=== PATIENT | female | born 1970 | race African-American/Black ===

== ENCOUNTER 2022-12-11 00:41 | Inpatient (IN) | payer OTHER ==
[~2022-12-11] VITALS: Ht 172.7 cm; Wt 60.3 kg
[2022-12-11 00:45] VITALS: BP 145/90
--- NOTE | 2022-12-11 00:58 | NUR ---
PT TO BED #1
--- NOTE | 2022-12-11 01:00 | NUR ---
TO BED 1 FOLLOWING TRIAGE
--- NOTE | 2022-12-11 01:10 | NUR ---
c/o 10/10 abd pain radiating to back x 2 weeks. per pt, nausea vomiting, diarrhea, SOB. pmhx: CHF, afib, HTN.
--- NOTE | 2022-12-11 01:18 | NUR ---
Dr. French by bedside evaluating patient
[2022-12-11] MEDS ORDERED: NACL 0.9% 1,000 ML IV ONE (01:30)
--- NOTE | 2022-12-11 01:35 | NUR ---
Pt taken to CT
--- NOTE | 2022-12-11 01:36 | NUR ---
Urine collected sent to lab
[2022-12-11] MEDS ORDERED: MORPHINE SULFATE 4 MG/ML SYR IVP ONE (02:10)
[2022-12-11] MEDS ORDERED: ONDANSETRON 4 MG/2 ML VIAL IVP ONE (02:10)
[2022-12-11 02:13] LABS: BASOPHILS # (AUTO) 0.1 K/uL (0.00-0.22); BASOPHILS % (AUTO) 1.5 % (0.0-2.0); EOSINOPHILS # (AUTO) 0.1 K/uL (0-0.4); EOSINOPHILS % (AUTO) 1.6 % (0.0-4.0); HEMATOCRIT 38.9 % (36-48); HEMOGLOBIN 13.6 g/dL (12.0-16.0); LYMPHOCYTES # (AUTO) 1.6 K/uL (2.5-16.5); LYMPHOCYTES % (AUTO) 29.4 % (20.5-51.1); MEAN CORPUSCULAR HEMOGLOBIN 35 pg (27-31); MEAN CORPUSCULAR HGB CONC 35 g/dL (33-37); MEAN CORPUSCULAR VOLUME 99.3 fL (80-94); MONOCYTES # (AUTO) 0.4 K/uL (0.8-1.0); MONOCYTES % (AUTO) 6.5 % (1.7-9.3); NEUTROPHILS # (AUTO) 3.4 K/uL (1.8-7.7); PLATELET COUNT (AUTO) 184 K/uL (140-450); RED BLOOD CELL COUNT(AUTO) 3.92 MIL/uL (4.20-5.40); RED CELL DISTRIBUTION WIDTH 13.6 % (11.6-13.7); WHITE BLOOD COUNT (AUTO) 5.5 K/uL (4.8-10.8)
[2022-12-11 02:14] LABS: APPEARANCE,URINE CLEAR (CLEAR); BILIRUBIN,URINE NEGATIVE (NEGATIVE); BLOOD, URINE TRACE-I (NEGATIVE); COLOR,URINE YELLOW (YELLOW); LEUKOCYTE ESTERASE ,URINE NEGATIVE (NEGATIVE); NITRITE, URINE NEGATIVE (NEGATIVE); PH,URINE 8.5 (5.0-9.0); UGLUCOSE 2+ (NEGATIVE)
[2022-12-11 02:31] LABS: RBC,URINE 0-5 /HPF (0-5); WBC,URINE NONE SEEN /HPF (0-5)
[2022-12-11] MEDS ORDERED: PIPERACILLIN/TAZOBACTAM 3.375 GM in DEXTROSE 5% 50 ML IV ONE (02:40)
[2022-12-11 02:45] LABS: ALBUMIN 3.3 g/dL (3.4-5.0); ANION GAP 14.9 (8-16); CARBON DIOXIDE 27.3 mmol/L (21-32); CREATININE 0.6 mg/dL (0.6-1.3); POTASSIUM 3.2 mmol/L (3.5-5.1); TOTAL BILIRUBIN 0.5 mg/dL (0.0-1.0)
--- NOTE | 2022-12-11 02:48 | NUR ---
COVID SWAB COLLECTED AND SENT TO LAB
[2022-12-11] MEDS ORDERED: PIPERACILLIN/TAZOBACTAM 3.375 GM VIAL IV ONE (03:01)
[2022-12-11] MEDS ORDERED: DEXT 5% /NACL 0.9% 1,000 ML IV SCH ×2 (04:00→09:45)
[2022-12-11] MEDS ORDERED: FURO-572 PO (04:12)
[2022-12-11] MEDS ORDERED: HYDR-4004 PO (04:12)
[2022-12-11] MEDS ORDERED: SPIR50TA PO (04:12)
[2022-12-11] MEDS ORDERED: IBUP-44 PO (04:12)
[2022-12-11] MEDS ORDERED: AMLO10TA PO (04:12)
[2022-12-11] MEDS ORDERED: ONDA-188 PO (04:12)
[2022-12-11] MEDS ORDERED: PHE25S PO (04:12)
[2022-12-11] MEDS ORDERED: POTA10TA70 PO (04:12)
[2022-12-11] MEDS ORDERED: CARI350T PO (04:12)
[2022-12-11] MEDS ORDERED: CLON-1170 PO (04:12)
--- NOTE | 2022-12-11 04:13 | NUR ---
Pt c/o severe abdominal pain, contacted Dr. Allen and relayed info that pt received Morphine 4 mg at 0235. Orders received for Morphine 2mg q 4 hrs PRN. Noted and carried out.
[2022-12-11] MEDS ORDERED: FAMO-90 PO (04:17)
[2022-12-11] MEDS ORDERED: IMO2 PO (04:17)
[2022-12-11] MEDS ORDERED: ALBU0.0912 INH (04:17)
[2022-12-11] MEDS ORDERED: [UNRECOGNIZED DRUG - CODE] PO (04:17)
[2022-12-11] MEDS ORDERED: BUDE180P IH (04:17)
--- NOTE | 2022-12-11 04:37 | NUR ---
MED RECONCILE COMPLETED
[2022-12-11] MEDS: MORPHINE SULFATE 2 MG/ML SYR IVP PRN ×2 (04:54→09:19)
--- NOTE | 2022-12-11 05:15 | NUR ---
Report given to Luke BOLANOS for transfer of care.
[2022-12-11 05:22] VITALS: BP 169/86
--- NOTE | 2022-12-11 05:30 | NUR ---
RECEIVED REPORT FROM ER NURSE OMA FOR CONTINUITY OF CARE. PATIENT IS A&O X4. PATIENT IS ON ROOM AIR, BREATHING IS NORMAL WITH SYMMETRICAL RISE AND FALL OF CHEST. IV IS A LEFT WRIST 22G, RUNNING D5 NS 125. PATIENT IS AWAKE, HIGH-FOWLERS POSITION. BED IS IN LOWEST POSITION WITH WHEELS LOCKED AND CALL LIGHT IN PLACE. WILL CONTINUE TO OBSERVE PATIENT.
--- NOTE | 2022-12-11 07:30 | NUR ---
RECEIVED REPORT FROM CARPENTER CRADLE AND DOLLY FOR CONTINUITY OF CARE. INITIAL ASSESSMENT DONE. IVF INFUSING WELL. PT STATED I WILL GO AMA AFTER I SEE THE DOCTOR. CALL LIGHT KEPT WITHIN REACH. WILL CONTINUE TO MONITOR.
--- NOTE | 2022-12-11 07:36 | NUR ---
ENDORSED TO DAY SHIFT NURSE RUDY FOR CONTINUITY OF CARE. PATIENT IS STABLE.
[2022-12-11 09:19] VITALS: BP 84/180
[2022-12-11] MEDS: hydrALAZINE 20 MG/ML VIAL IVP PRN ×3 (09:19→11:09)
[2022-12-11] MEDS ORDERED: ZOLPIDEM 5 MG TAB PO PRN (09:45)
[2022-12-11] MEDS ORDERED: amLODIPine 5 MG TAB PO SCH (09:45)
[2022-12-11] MEDS ORDERED: ONDANSETRON 4 MG/2 ML VIAL IM/IVP PRN (09:45)
[2022-12-11] MEDS ORDERED: ACETAMINOPHEN 325 MG TAB PO PRN (09:45)
[2022-12-11] MEDS ORDERED: HYDROcodone/APAP 7.5/325 MG 1 TAB PO PRN (09:45)
[2022-12-11] MEDS ORDERED: carisoprodoL 350 MG TAB PO SCH (09:45)
[2022-12-11] MEDS ORDERED: POTASSIUM CHLORIDE 10 MEQ TABER PO PRN (09:45)
[2022-12-11] MEDS ORDERED: FUROSEMIDE 20 MG TAB PO SCH (09:45)
[2022-12-11] MEDS ORDERED: guaiFENesin DM 200/20 MG-10 ML 10 ML UDC PO PRN (09:45)
[2022-12-11] MEDS ORDERED: hydroCHLOROthiazide 25 MG TAB PO SCH (09:45)
[2022-12-11] MEDS ORDERED: CLONIDINE HYDROCHLORIDE 0.1 MG TAB PO SCH (09:45)
[2022-12-11] MEDS ORDERED: DOCUSATE SODIUM 100 MG GELCAP PO PRN (09:45)
--- NOTE | 2022-12-11 10:03 | NUR ---
PATIENT HAS BEEN SCREENED AND CATEGORIZED HIGH NUTRITION RISK. PATIENT WILL BE SEEN WITHIN 1-2 DAYS OF ADMISSION. 12/11/22-12/13/[address] [facility] REFERRAL RECEIVED FOR VOMITING > 3 DAYS
--- NOTE | 2022-12-11 10:34 | NUR ---
PT LEFT AMA. DR Fermín MARSHALL MADE AWARE. IV AND ID BAND REMOVED.
[2022-12-11 10:52] LABS: PROTHROMBIN TIME 9.7 secs (10.8-13.4)
[2022-12-11 11:03] LABS: CHOL/HDL RATIO 1.9 (1-4.5); FREE T4 (FREE THYROXINE) 1.13 ng/dL (0.76-1.46); MAGNESIUM 1.9 mg/dL (1.8-2.4); PHOSPHORUS 2.4 mg/dL (2.5-4.9); THYROID STIMULATING HORMONE 2.22 uIU/mL (0.34-3.74)
[2022-12-12 08:09] LABS: T4 (THYROXINE) 10.4 ug/dL (4.5-12.0)
[2022-12-12] MEDS ORDERED: PANTOPRAZOLE 40 MG TABEC PO SCH (09:00)
== END 2022-12-11 10:35 | disposition left against medical advice (07) | DRG 391 ==
LOC: MED 00:41 → MMU 03:43 → MTU 04:13
PROVIDERS: ADMIT Family Medicine; ATTEND Family Medicine
DX: K52.9 Noninfective gastroenteritis and colitis, unspecified (principal); K29.71 Gastritis, unspecified, with bleeding; E44.1 Mild protein-calorie malnutrition; E87.1 Hypo-osmolality and hyponatremia; I48.0 Paroxysmal atrial fibrillation; E87.6 Hypokalemia; E83.39 Other disorders of phosphorus metabolism; I11.0 Hypertensive heart disease with heart failure; I50.9 Heart failure, unspecified; F17.200 Nicotine dependence, unspecified, uncomplicated; Z20.822 Contact with and (suspected) exposure to COVID-19; J45.909 Unspecified asthma, uncomplicated; K42.9 Umbilical hernia without obstruction or gangrene; K76.0 Fatty (change of) liver, not elsewhere classified; Z88.6 Allergy status to analgesic agent; Z88.8 Allergy status to other drugs, medicaments and biological substances; Z79.899 Other long term (current) drug therapy; Z98.891 History of uterine scar from previous surgery; Z68.20 Body mass index [BMI] 20.0-20.9, adult
CPT/HCPCS: 36415; 71045; 80053; 81001; 82150; 83036; 83605; 83690; 83735; 83880; 84100; 84436; 84439; 84443; 84479; 85025; 85610; 85730; 87040; 87081; 87086; 93005; 96361; 96365; 96375; 99285; J0360; J2270; J2405; J2543

== ENCOUNTER 2022-12-13 14:09 | Emergency (ER) | payer OTHER ==
[~2022-12-13 14:09] MED LIST: ALBU0.0912 INH; AMLO10TA PO; BUDE180P IH; CARI350T PO; CLON-1170 PO; FAMO-90 PO; FURO-572 PO; HYDR-4004 PO; IBUP-44 PO; IMO2 PO; ONDA-188 PO; PHE25S PO; POTA10TA70 PO; SPIR50TA PO; [UNRECOGNIZED DRUG - CODE] PO
== END 2022-12-13 14:44 | disposition left against medical advice (07) ==
LOC: MED 14:09
DX: R10.9 Unspecified abdominal pain (principal); Z53.21 Procedure and treatment not carried out due to patient leaving prior to being seen by health care provider